=== PATIENT | male | born 1965 | race Caucasian/White ===

== ENCOUNTER 2016-09-17 13:41 | Emergency (ER) | payer BC ==
[2016-09-17 14:10] VITALS: BP 116/68
--- NOTE | 2016-09-17 15:07 | UC ---
Throat Pain/Nasal Mike HPI - HPI Summary HPI Summary: 51 yo male with sinus problems that worsened over the past few days (5). His symptoms actually started about a month ago Has had a hx of sinus problems and had sinus surgery facial pressure and pain post nasal drip no f/c no myalgias - History of Current Complaint Chief Complaint: UCRespiratory Stated Complaint: SINUS COMPLAINT Time Seen by Provider: 09/17/16 14:11 Hx Obtained From: Patient Onset/Duration: Gradual Onset, Lasting Days Severity: Mild Pain Intensity: 4 Pain Scale Used: 0-10 Numeric Cough: Nonproductive Associated Signs & Symptoms: Positive: Sinus Discomfort, Nasal Discharge Related History: Prior ENT Surgery - Allergies/Home Medications Allergies/Adverse Reactions: Allergies Allergy/AdvReac Type Severity Reaction Status Date / Time Penicillins Allergy Severe Rash Verified 09/17/16 14:10 Home Medications: Home Medications Phenylephrine-Chlorpheniramine [Linda-[place] Plus Cold &] 1 tab PO BEDTIME PRN 09/17/16 [History Confirmed 09/17/16] PMH/Surg Hx/FS Hx/Imm Hx Previously Healthy: Yes - had meningitis s/p basilar skull fx age 17 Cardiovascular History Of: Denies: Cardiac Disorders, Hypertension, Pacemaker/ICD, Myocardial Infarction , Congestive Heart Failure, Atrial Fibrillation, Deep Vein Thrombosis, Bleeding Disorders Respiratory History Of: Denies: COPD, Asthma, Bronchitis, Pneumonia, Pulmonary Embolism GI/ History Of: Denies: Gastroesophageal Reflux, Ulcer, Gastrointestinal Bleed, Gall Bladder Disease, Kidney Stones, Diverticulitis, Renal Disease, Urosepsis Neurological History Of: Denies: TIA, CVA, Dementia, Seizures, Migraine Psychological History Of: Denies: Anxiety, Depression, Bipolar Disorder, Schizophrenia, Post Traumatic Stress Disorder Cancer History Of: Denies: Lung Cancer, Colorectal Cancer, Breast Cancer, Prostate Cancer, Cervical Cancer - Surgical History Surgical History: Yes Surgery Procedure, Year, and Place: septoplasty. tubuloreduction. turbinate - Family History Known Family History: Positive: Other - CA Negative: Cardiac Disease, Hypertension, Diabetes - Social History Alcohol Use: Occasionally Substance Use Type: None Smoking Status (MU): Never Smoked Tobacco - Immunization History Most Recent Influenza Vaccination: [id number] Review of Systems Constitutional: Negative Skin: Negative Eyes: Negative ENT: Ear Ache, Nasal Discharge Respiratory: Negative Cardiovascular: Negative Gastrointestinal: Negative Genitourinary: Negative Motor: Negative Neurovascular: Negative Musculoskeletal: Negative Neurological: Negative Psychological: Negative All Other Systems Reviewed And Are Negative: Yes Physical Exam Triage Information Reviewed: Yes Appearance: No Pain Distress, Well-Nourished Vital Signs: Initial Vital Signs Temp 99.7 F 09/17/16 14:03 Pulse 81 09/17/16 14:03 Resp 20 09/17/16 14:03 BP 116/68 09/17/16 14:03 Pulse Ox 97 09/17/16 14:03 Vital Signs Reviewed: Yes Eyes: Positive: Conjunctiva Clear ENT: Positive: Hearing grossly normal, Nasal congestion, Nasal drainage, TMs normal, Other: - bilateral max sinus tenderness Neck: Positive: Supple, Nontender Respiratory: Positive: Lungs clear, Normal breath sounds Cardiovascular: Positive: RRR, No Murmur Musculoskeletal: Positive: ROM Intact, No Edema Neurological Exam: Normal Neurological: Positive: Alert Psychological Exam: Normal Skin Exam: Normal Throat Pain/Nasal Course/Dx - Differential Dx/Diagnosis Provider Diagnoses: acute sinusitis Discharge - Discharge Plan Condition: Stable Disposition: HOME Prescriptions: DOXYcycline CAP(*) [DOXYcycline 100MG CAP(*)] 100 mg PO BID #20 cap Patient Education Materials: Sinusitis (ED) Referrals: Fermin Edwards MD [Primary Care Provider] - 5 Days (if not better) Additional Instructions: saline nasal spray twice daily consider trying flonasa (otc)
== END 2016-09-17 15:09 | disposition home or self-care (01) ==
LOC: UCCORT 13:41
DX: J01.90 Acute sinusitis, unspecified (principal); Z87.81 Personal history of (healed) traumatic fracture; Z88.0 Allergy status to penicillin
CPT/HCPCS: 99212; G0463

== ENCOUNTER 2019-06-24 10:03 | Emergency (ER) | payer BC ==
--- OUTSIDE RECORDS SUMMARY | 2019-06-24 11:15 | XMS REPORT | Continuity of Care Document ---
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 Thrombophlebitis of superficial veins of lower Aislinn Simmons DO Onset: extremity Social History Type Date Description Comments Sex Unknown Tobacco Use Start: Unknown Never Smoked Cigarettes ETOH Use Occasionally consumes weekends every other alcohol Tobacco Use Start: Unknown Patient denies history of smoking Recreational Drug Use Never Used Drugs Allergies, Adverse Reactions, Alerts Active Allergies Reaction Severity Comments Date Penicillin 04/19/2013 Medications Active Medications SIG Qnty Indications Ordering Provider Date Testosterone Enanthate Inject 1ML Im Q Unknown Week 200mg/ml Solution Medications Administered in Office Medication SIG Qnty Indications Ordering Provider Date Betamethasone Acetate & Sodium Elizabeth Caal, 08/14/2018 Phosphate 3 MG Of Each RPAC Injection Methylprednisolone acetate Elizabeth Caal, 12/24/2015 (Depomedrol) 80mg injection RPAC Injection Methylprednisolone acetate Haris Nails M.D. 09/04/2015 (Depomedrol) 80mg injection Injection Methylprednisolone acetate Elizabeth Caal SDanae, 09/04/2015 (Depomedrol) 80mg injection RPAC Injection Methylprednisolone acetate Haris Nails M.D. 04/15/2015 (Depomedrol) 80mg injection Injection Methylprednisolone acetate Elizabeth Caal SDanae, 04/15/2015 (Depomedrol) 80mg injection RPAC Injection Methylprednisolone acetate Elizabeth Caal S., 06/11/2014 (Depomedrol) 80mg injection RPAC Injection Depomedrol 40mg/1cc Alden Hernandez, 06/11/2014 (methylprednisolone acetate) AINSLEY HOFFMAN Injection Depomedrol 40mg/1cc Elizabeth Caal S., 06/11/2014 (methylprednisolone acetate) RPAC Injection Methylprednisolone acetate Elizabeth Caal S., 11/28/2013 (Depomedrol) 80mg injection RPAC Injection Depomedrol 40mg/1cc Elizabeth Caal S., 11/28/2013 (methylprednisolone acetate) RPAC Injection Depomedrol 40mg/1cc Elizabeth Caal S., 11/28/2013 (methylprednisolone acetate) RPAC Injection Immunizations Description No Information Available Vital Signs Date Vital Result Comment 06/04/2019 3:07pm BP Systolic 135 mmHg BP Diastolic 79 mmHg Body Temperature 98.5 F Heart Rate 74 /min Respiratory Rate 16 /min Weight 246.50 lb O2 % BldC Oximetry 98 % Pain Level 0 03/05/2019 3:01pm BP Systolic 128 mmHg BP Diastolic 75 mmHg Body Temperature 98.6 F Heart Rate 92 /min Weight 237.38 lb O2 % BldC Oximetry 96 % Pain Level 0 Results Test Acquired Date Facility Test Result H/L Range Note CBC 05/28/2019 [facility] White Blood 5.3 K/uL Normal 3.4-10.5 1 W/Automated [address] Count Diff [place], [place] [address] [phone] Red Blood Count 5.45 M/uL Normal 4.20-5.80 Hemoglobin 16.1 gm/dL Normal 12.8-17.0 Hematocrit 48.4 % High 38.0-48.0 Mean Cell Volume 88.8 fl Normal 80.0-96.0 Mean Corpuscular HGB 29.5 pg Normal 27.0-33.0 Mean Corpuscular HGB Conc 33.3 g/dL Normal 31.7-36.0 Platelet Count 224 K/uL Normal 155-360 Red Cell Distri Width SD 43.5 fl Normal 36-51 Red Cell Distri Width %CV 13.4 % Normal 11.6-15.8 Mean Platelet Volume 11.4 fl High 6.6-10.6 Neut% 56.6 % Normal 33.0-73.0 Lymph % 27.5 % Normal 20.0-42.0 [place] % 10.4 % High 0.0-10.0 Eo% 4.2 % Normal 0.0-6.6 Bas% 0.9 % Normal 0.0-1.1 Immature Grans 0.4 % Normal 0.0-5.0 NRBC % 0.0 /100WBC < 10/ 100 WBC Neut# 2.98 K/uL Normal 1.8-7.0 Lymph # 1.45 K/uL Normal 1.0-4.0 [place] # 0.55 K/uL Normal 0.0-0.8 Eos # 0.22 K/uL Normal 0.0-0.5 Baso # 0.05 K/uL Normal 0.0-0.1 Immature Grans Absolute 0.02 K/uL NRBC # 0.00 K/uL Comprehensive Metabolic 05/28/2019 [facility] Glucose 71 mg/dL Low 74-106 Panel [address] [place] [address] [phone] BUN 15 mg/dL Normal 7-18 Creatinine 1.1 mg/dL Normal 0.6-1.3 Glom Filtration Rate, Estimate >60 mL/min >60 If >60 mL/min >60 2 BUN/Creat 13.6 ratio Sodium 138 mmol/L Normal 136-145 Potassium 3.7 mmol/L Normal 3.5-5.1 Chloride 105 mmol/L Normal 98-107 Carbon Dioxide 28 mmol/L Normal 21-32 Anion Gap 5 mEq/L Low 8-16 Calcium 8.6 mg/dL Normal 8.5-10.1 Total Protein 6.8 g/dL Normal 6.4-8.2 Albumin 3.8 g/dL Normal 3.4-5.0 Globulin 3.0 g/dL Normal 1.9-4.3 Alb/Glob 1.3 ratio Bilirubin,Total 0.7 mg/dL Normal 0.2-1.0 Sgot/Ast 23 U/L Normal 15-37 SGPT/Alt 28 U/L Normal 12-78 Alkaline Phosphatase 93 U/L Normal 45-117 Vitamin B12 And 05/28/2019 [facility] Vitamin B12 1779 pg/mL High 193-986 Folate [address] [place] [address] [phone] Folic Acid > 20.0 ng/mL High 3.1-17.5 Laboratory test 05/28/2019 [facility] Ferritin 24 ng/mL Low 26-388 finding [address] [place] [address] [phone] Iron-Tibc-%Sat 05/28/2019 [facility] Serum Iron 78 g/dL Normal 65-175 [address] [place] [address] [phone] Total Iron Binding Capacity 368 g/dL Normal 250-450 Transferrin %Saturation 21 % Normal 12-57 Laboratory test 05/28/2019 [facility] Thyroid 2.39 Normal 0.30-4.20 finding [address] [facility] Stim uIU/[place] [address] Hormone [phone] Comprehensive 01/31/2019 [facility] Glucose 83 mg/dL Normal 74-106 Metabolic Panel [address] [place] [address] [phone] BUN 23 mg/dL High 7-18 Creatinine 1.1 mg/dL Normal 0.6-1.3 Glom Filtration Rate, Estimate >60 mL/min >60 If >60 mL/min >60 3 BUN/Creat 20.9 ratio Sodium 142 mmol/L Normal 136-145 Potassium 3.8 mmol/L Normal 3.5-5.1 Chloride 109 mmol/L High 98-107 Carbon Dioxide 25 mmol/L Normal 21-32 Anion Gap 8 mEq/L Normal 8-16 Calcium 8.5 mg/dL Normal 8.5-10.1 Total Protein 7.1 g/dL Normal 6.4-8.2 Albumin 3.6 g/dL Normal 3.4-5.0 Globulin 3.5 g/dL Normal 1.9-4.3 Alb/Glob 1.0 ratio Bilirubin,Total 0.9 mg/dL Normal 0.2-1.0 Sgot/Ast 29 U/L Normal 15-37 SGPT/Alt 31 U/L Normal 12-78 Alkaline Phosphatase 103 U/L Normal 45-117 Factor V Leiden 01/31/2019 [facility] Factor V Leiden (SEE NOTE) 4 Mutation [address] [place] [address] [phone] . . Laboratory 01/31/2019 [facility] Testosterone,Serum 82 ng/dL Low 264-916 5 test finding [address] [place] [address] [phone] Prolactin 4.7 ng/mL Normal 2.5-17.4 Prostate Specific Antigen 0.24 ng/mL < 4.0 6 Vitamin B12 And 01/31/2019 [facility] Vitamin B12 1095 pg/mL High 193-986 Folate [address] [place] [address] [phone] Folic Acid 12.9 ng/mL Normal 3.1-17.5 Laboratory test 01/31/2019 [facility] Vitamin 43.9 30.0-100.0 7 finding [address] [facility],25-Hydroxy ng/[place] [address] [phone] Ferritin 126 ng/mL Normal 26-388 Iron-Tibc-%Sat 01/31/2019 [facility] Serum Iron 132 g/dL Normal 65-175 [address] [place] [address] [phone] Total Iron Binding Capacity 341 g/dL Normal 250-450 Transferrin %Saturation 39 % Normal 12-57 Lupus Anticoagulant Reflex 01/31/2019 [facility] PTT-LA 34.3 sec 0.0-51.9 [address] [place] [address] [phone] DRVVT 32.1 sec 0.0-47.0 Note: Comment: . 8 Laboratory test 01/31/2019 [facility] Thyroid 1.87 Normal 0.30-4.[address] Stim uIU/[place] [address] Hormone [phone] Fibrinogen 351 mg/dL Normal 200-467 Sedimentation Rate 4 mm/hr Normal 2-45 9 Anticardiolipin AB 01/31/2019 [facility] Anticardiolipin < 9 0-14 10 Iga/Igg/Igm [address] Igg GPLU/[place] [address] [phone] Anticardiolipin Igm, Quant < 9 MPLU/mL 0-12 11 Anticardiolipin Iga < 9 APLU/mL 0-11 12 CBC W/Automated 01/31/2019 [facility] White Blood 4.1 K/uL Normal 3.4-10.[address] [place] [address] [phone] Red Blood Count 5.45 M/uL Normal 4.20-5.80 Hemoglobin 16.3 gm/dL Normal 12.8-17.0 Hematocrit 47.8 % Normal 38.0-48.0 Mean Cell Volume 87.7 fl Normal 80.0-96.0 Mean Corpuscular HGB 29.9 pg Normal 27.0-33.0 Mean Corpuscular HGB Conc 34.1 g/dL Normal 31.7-36.0 Platelet Count 206 K/uL Normal 155-360 Red Cell Distri Width SD 44.7 fl Normal 36-51 Red Cell Distri Width %CV 14.1 % Normal 11.6-15.8 Mean Platelet Volume 11.6 fl High 6.6-10.6 Neut% 59.3 % Normal 33.0-73.0 Lymph % 24.8 % Normal 20.0-42.0 [place] % 9.1 % Normal 0.0-10.0 Eo% 5.6 % Normal 0.0-6.6 Bas% 1.0 % Normal 0.0-1.1 Immature Grans 0.2 % Normal 0.0-5.0 NRBC % 0.0 /100WBC < 10/ 100 WBC Neut# 2.42 K/uL Normal 1.8-7.0 Lymph # 1.01 K/uL Normal 1.0-4.0 [place] # 0.37 K/uL Normal 0.0-0.8 Eos # 0.23 K/uL Normal 0.0-0.5 Baso # 0.04 K/uL Normal 0.0-0.1 Immature Grans Absolute 0.01 K/uL NRBC # 0.00 K/uL 1 D35.2 Z80.0 2 Note: Persistent reduction for 3 months or more in an eGFR <60 mL/min/1.73 m2 defines CKD. Patients with eGFR values >/=60 mL/min/1.73 m2 may also have CKD if evidence of persistent proteinuria is present. The original MDRD equation for estimated GFR is not valid for patients less than 18 years of age. Additional information may be found at www.kdoqi.org. 3 Note: Persistent reduction for 3 months or more in an eGFR <60 mL/min/1.73 m2 defines CKD. Patients with eGFR values >/=60 mL/min/1.73 m2 may also have CKD if evidence of persistent proteinuria is present. The original MDRD equation for estimated GFR is not valid for patients less than 18 years of age. Additional information may be found at www.kdoqi.org. 4 Result: Negative (no mutation found) Factor V Leiden is a specific mutation ([id number]) in the factor V gene that is associated with an increased risk of venous thrombosis. Factor V Leiden is more resistant to inactivation by activated protein C. As a result, factor V persists in the circulation leading to a mild hyper- coagulable state. The Leiden mutation accounts for 90% - 95% of APC resistance. Factor V Leiden has been reported in patients with deep vein thrombosis, pulmonary embolus, central retinal vein occlusion, cerebral sinus thrombosis and hepatic vein thrombosis. Other risk factors to be considered in the workup for venous thrombosis include the [id number] mutation in the factor II (prothrombin) gene, protein S and C deficiency, and antithrombin deficiencies. Anticardiolipin antibody and lupus anticoagulant analysis may be appropriate for certain patients, as well as homocysteine levels. Contact your local [facility] for information on how to order additional testing if desired. Genetic counselors are available for health care providers to discuss results at [phone]). Methodology: DNA analysis of the Factor V gene was performed by allele- specific PCR. The diagnostic sensitivity and specificity is >99% for both. Molecular-based testing is highly accurate, but as in any laboratory test, diagnostic errors may occur. All test results must be combined with clinical information for the most accurate interpretation. This test was developed and its performance characteristics determined by [employer]. It has not been cleared or approved by the Food and Drug Administration. References: Jamal Oneill (1995). Clin Lab Med 16:169-186. Nikki Severino, PhD, FACMG Deborah Gann, PhD, FACMG Ariana See M.S., PhD, FACMG Valerie Stapleton, PhD, FACMG Grecia Bennett, PhD, FACMG Ector Jose PhD, FACMG Performed at: [facility] [address] [place], [place] [id number] Cap Blocker: Canelo Mcmanus MD, Phone: [phone] 5 Adult male reference interval is based on a population of healthy nonobese males (BMI <30) between 19 and 39 years old. Sue, et.al. JCEM 2017,102;4241-3706. PMID: 96210399. 6 THIS ASSAY IS NOT INTENDED A CANCER SCREENING TEST The concentration of PSA in a given specimen, determined with assays from different manufacturers, can vary due to differences in assay methods and reagent specificity. Values obtained from different assay methods cannot be used interchangeably. Method: [employer] [place] Chemiluminescent immunoassay. 7 Vitamin D deficiency has been defined by the [place] of Medicine and an Endocrine Society practice guideline as a level of serum 25-OH vitamin D less than 20 ng/mL (1,2). The Endocrine Society went on to further define vitamin D insufficiency as a level between 21 and 29 ng/mL (2). 1. IOM ([place] of Medicine). 2010. Dietary reference intakes for calcium and D. [place]: The National Academies Press. 2. Jonh MF, Camilla [place], Kandis KHAN, et al. Evaluation, treatment, and prevention of vitamin D deficiency: an Endocrine Society clinical practice guideline. JCEM. 2010; 96(7):1911-30. Performed at: [facility] [id number] Cap Blocker: Bethany Shen MD, Phone: [phone] 8 No lupus anticoagulant was detected. 9 This result was obtained with an ESR method that is not based on the standard Westergren Method. When comparing results obtained from the traditional Westergren ESR and this method it is important to refer to the reference range for each method. Method: Capillary Photometry 10 Negative: <15 Indeterminate: 15 - 20 Low-Med Positive: >20 - 80 High Positive: >80 11 Negative: <13 Indeterminate: 13 - 20 Low-Med Positive: >20 - 80 High Positive: >80 12 Negative: <12 Indeterminate: 12 - 20 Low-Med Positive: >20 - 80 High Positive: >80 Performed at: RN - [facility] [address] [id number] Cap Blocker: Bethany Shen MD, Phone: [phone] Procedures Description No Information Available Medical Devices Description No Information Available Encounters Type Date Location Provider Dx Diagnosis Office Visit 01/31/2019 Oncology Office Aislinn Simmons, I80.02 Phlebitis and 1:00p DO thombophlb of superfic vessels of l low extrem D35.2 Benign neoplasm of pituitary gland E29.1 Testicular hypofunction J34.3 Hypertrophy of nasal turbinates I86.1 Scrotal varices Assessments Date Code Description Provider 06/04/2019 I80.02 Phlebitis and thrombophlebitis of superficial Cassius Simmonst, DO vessels of left lower extremity 06/04/2019 E29.1 Testicular hypofunction Cassius Simmonst, DO 06/04/2019 J34.3 Hypertrophy of nasal turbinates Iris Aislinn, DO 06/04/2019 D35.2 Benign neoplasm of pituitary gland Iris Aislinn, DO 05/28/2019 D35.2 Benign neoplasm of pituitary gland Iris Aislinn, DO 05/28/2019 D35.2 Benign neoplasm of pituitary gland Oncology Nurse 05/28/2019 Z80.0 Family history of malignant neoplasm of Cassius Simmonst, DO digestive organs 05/28/2019 Z80.0 Family history of malignant neoplasm of Oncology Nurse digestive organs 03/05/2019 I80.02 Phlebitis and thrombophlebitis of superficial Fritz Ibrahim MD vessels of left lower extremity 03/05/2019 E29.1 Testicular hypofunction Fritz Ibrahim MD 03/05/2019 I82.402 Acute embolism and thrombosis of unspecified Fritz Ibrahim MD deep veins of left lower extremity 01/31/2019 I80.02 Phlebitis and thrombophlebitis of superficial Aislinn Simmons, DO vessels of left lower extremity 01/31/2019 D35.2 Benign neoplasm of pituitary gland DerekAislinn townsend, DO 01/31/2019 E29.1 Testicular hypofunction Iris Aislinn, DO 01/31/2019 J34.3 Hypertrophy of nasal turbinates IrisAislinn, DO 01/31/2019 I86.1 Scrotal varices Aislinn Simmons DO Plan of Treatment Future Appointment(s):12/04/2019 3:00 pm - Oncology Nurse at Oncology [id number] 3:00 pm - Oncology Nurse at Oncology Office Functional Status Description No Information Available Mental Status Description No Information Available Referrals Refer to Dr Reason for Referral Status Appt Date Hong Morse MD NASAL POLYPS Closed 02/15/[address] [place] [address] [phone]
[2019-06-24 11:25] VITALS: BP 130/82
--- NOTE | 2019-06-24 11:33 | UC ---
Respiratory Complaint HPI - HPI Summary HPI Summary: 54 year old male with h/o recurrent sinusitis, s/p sinus surgery 3 mos ago presents with complaint of post nasal drip, sinus congestion and pressure, headache and productive cough. Denies fever. nor chills. No nausea, vomiting nor diarrhea. - History of Current Complaint Chief Complaint: UCGeneralIllness Stated Complaint: SINUSES Time Seen by Provider: 06/24/19 11:21 Hx Obtained From: Patient Onset/Duration: Gradual Onset, Lasting Days - 7 Pain Intensity: 0 Associated Signs And Symptoms: Negative: Fever, Chills - Allergies/Home Medications Allergies/Adverse Reactions: Allergies Allergy/AdvReac Type Severity Reaction Status Date / Time Penicillins Allergy Rash Verified 06/24/19 11:18 Home Medications: Home Medications Ibuprofen TAB* [Advil TAB*] 1,000 mg PO ONCE 06/24/19 [History Confirmed ] PMH/Surg Hx/FS Hx/Imm Hx Previously Healthy: Yes - Surgical History Surgical History: Yes Surgery Procedure, Year, and Place: septoplasty. tubuloreduction. turbinate - Family History Known Family History: Positive: Other - CA Negative: Cardiac Disease, Hypertension, Diabetes - Social History Alcohol Use: Occasionally Substance Use Type: None Smoking Status (MU): Never Smoked Tobacco - Immunization History Most Recent Influenza Vaccination: [id number] Review of Systems All Other Systems Reviewed And Are Negative: Yes Constitutional: Positive: Negative Skin: Positive: Negative Eyes: Positive: Negative ENT: Positive: Sore Throat, Nasal Discharge, Sinus Congestion, Sinus Pain/ Tenderness Respiratory: Positive: Negative Cardiovascular: Positive: Negative Gastrointestinal: Positive: Negative Genitourinary: Positive: Negative Motor: Positive: Negative Neurovascular: Positive: Negative Musculoskeletal: Positive: Negative Neurological: Positive: Negative Psychological: Positive: Negative Is Patient Immunocompromised?: No Physical Exam Triage Information Reviewed: Yes Appearance: Well-Appearing, No Pain Distress, Well-Nourished Vital Signs: Initial Vital Signs Temp 98.1 F 06/24/19 11:20 Pulse 88 06/24/19 11:20 Resp 16 06/24/19 11:20 BP 130/82 06/24/19 11:20 Pulse Ox 99 06/24/19 11:20 Eye Exam: Normal ENT: Positive: Pharynx normal, Nasal congestion, Nasal drainage, TMs normal, Sinus tenderness - maxillary bilateral Neck: Positive: Supple, Nontender, No Lymphadenopathy Respiratory: Positive: Lungs clear, Normal breath sounds. Negative: Crackles, Rhonchi, Wheezing Cardiovascular: Positive: RRR, No Murmur Abdomen Description: Positive: Nontender, Soft Musculoskeletal Exam: Normal Neurological Exam: Normal Psychological Exam: Normal Respiratory Course/Dx - Differential Dx/Diagnosis Provider Diagnosis: Acute sinusitis Discharge ED - Sign-Out/Discharge Documenting (check all that apply): Patient Departure All imaging exams completed and their final reports reviewed: No Studies - Discharge Plan Condition: Stable Disposition: HOME Prescriptions: DOXYcycline CAP(*) [DOXYcycline 100MG CAP(*)] 100 mg PO BID 10 Days #20 cap Patient Education Materials: Sinusitis (ED) Referrals: Faisal Coats MD [Primary Care Provider] - Additional Instructions: Take all your medication as prescribed. If your symptoms persist or worsen, follow-up with your ENT, Dr. Morse. - Billing Disposition and Condition Condition: STABLE Disposition: Home
== END 2019-06-24 11:56 | disposition home or self-care (01) ==
LOC: UCCORT 10:03
DX: J01.90 Acute sinusitis, unspecified (principal); Z88.0 Allergy status to penicillin
CPT/HCPCS: 99212; G0463

== ENCOUNTER 2019-09-08 12:12 | Emergency (ER) | payer BC ==
[2019-09-08 13:39] VITALS: BP 157/72
--- NOTE | 2019-09-08 13:49 | UC ---
Throat Pain/Nasal Mike HPI - HPI Summary HPI Summary: Sore throat, post nasal drip since yesterday morning. Pt denies fever, body aches or sick contacts. - History of Current Complaint Chief Complaint: UCGeneralIllness Stated Complaint: ST Time Seen by Provider: 09/08/19 13:32 Hx Obtained From: Patient Pain Intensity: 5 Pain Scale Used: 0-10 Numeric Cough: Other: - Allergies/Home Medications Allergies/Adverse Reactions: Allergies Allergy/AdvReac Type Severity Reaction Status Date / Time Penicillins Allergy Rash Verified 09/08/19 13:34 Home Medications: Home Medications Testosterone [Androgel] 2 pump.syr TD WEEKLY 07/12/15 [History Confirmed ] Aspirin TAB* [Aspirin 325 MG TAB*] 4 tab PO ONCE 09/08/19 [History Confirmed ] Dextromethorphan/Benzocaine [Cepacol Sorethroat-Cough Tiesha] 1 each PO Q2HR PRN # 90 lozenge 09/08/19 [Rx] PMH/Surg Hx/FS Hx/Imm Hx - Additional Past Medical History Additional PMH: no chronic illness Previously Healthy: Yes - Surgical History Surgical History: Yes Surgery Procedure, Year, and Place: septoplasty. tubuloreduction. turbinate - Family History Known Family History: Positive: Other - [place] Negative: Cardiac Disease, Hypertension, Diabetes - Social History Alcohol Use: Rare Substance Use Type: None Smoking Status (MU): Never Smoked Tobacco - Immunization History Most Recent Influenza Vaccination: [id number] Review of Systems All Other Systems Reviewed And Are Negative: Yes Constitutional: Negative: Fever ENT: Positive: Sore Throat, Sinus Congestion Respiratory: Negative: Cough Physical Exam Triage Information Reviewed: Yes Appearance: Well-Appearing Vital Signs: Initial Vital Signs Temp 98.2 F 09/08/19 13:35 Pulse 64 09/08/19 13:35 Resp 15 09/08/19 13:35 BP 157/72 09/08/19 13:35 Pulse Ox 100 09/08/19 13:35 Vital Signs Reviewed: Yes Eyes: Positive: Conjunctiva Clear ENT: Positive: Pharyngeal erythema, TMs normal, Uvula midline Neck: Positive: Supple, Nontender, No Lymphadenopathy Respiratory Exam: Normal Cardiovascular Exam: Normal Neurological: Positive: Alert Skin: Negative: Rashes Throat Pain/Nasal Course/Dx - Course Course Of Treatment: Sore throat with post nasal drip. rapid strep neg. vitals good. exam did show erythema in oropharynx but we disc how to manage viral etiology. - Differential Dx/Diagnosis Differential Diagnosis/HQI/PQRI: Pharyngitis, URI, Other Provider Diagnosis: Pharyngitis Discharge ED - Sign-Out/Discharge Documenting (check all that apply): Patient Departure All imaging exams completed and their final reports reviewed: No Studies - Discharge Plan Condition: Good Disposition: HOME Prescriptions: Dextromethorphan/Benzocaine [Cepacol Sorethroat-Cough Tiesha] 1 each PO Q2HR PRN # 90 lozenge PRN Reason: Sore Throat Patient Education Materials: Pharyngitis (ED) Referrals: Syed Quiroga MD [Primary Care Provider] - Additional Instructions: Blood pressure elevated, please review with your primary care provider. yOU DO NOT HAVE STREP - Billing Disposition and Condition Condition: GOOD Disposition: Home
== END 2019-09-08 14:07 | disposition home or self-care (01) ==
LOC: UCCORT 12:12
DX: J02.9 Acute pharyngitis, unspecified (principal); R09.82 Postnasal drip; R09.89 Other specified symptoms and signs involving the circulatory and respiratory systems; Z79.82 Long term (current) use of aspirin
CPT/HCPCS: 87651; 99212; G0463